=== PATIENT | female | born 1970 | race Caucasian/White ===

== ENCOUNTER 2018-05-14 21:45 | Emergency (ER) | payer SELFPAY ==
[~2018-05-14] VITALS: Ht 154.9 cm; Wt 97.7 kg
[2018-05-14 21:55] VITALS: BP 140/75; PULSE 82; TEMP 98.7
== END 2018-05-14 23:28 | disposition home or self-care (01) ==
LOC: COL.ER 21:45
DX: T23.132A Burn of first degree of multiple left fingers (nail), not including thumb, initial encounter (principal); Z88.1 Allergy status to other antibiotic agents; X10.2XXA Contact with fats and cooking oils, initial encounter; Y92.009 Unspecified place in unspecified non-institutional (private) residence as the place of occurrence of the external cause